=== PATIENT | male | born 1950 | race Two or more races ===

== ENCOUNTER 2021-12-18 12:03 | Emergency (ER) | payer OTHER ==
[~2021-12-18] VITALS: Ht 167.6 cm; Wt 89.8 kg
[2021-12-18] MEDS ORDERED: MONTELUKAST SOD10 MG PO (12:36)
[2021-12-18] MEDS ORDERED: IRBESARTAN300 MG PO (12:36)
[2021-12-18] MEDS ORDERED: AMLODIPINE BESYL5 MG PO (12:37)
[2021-12-18] MEDS ORDERED: DOXAZOSIN MESYLA1 MG PO (12:37)
== END 2021-12-18 20:05 | disposition home or self-care (01) ==
LOC: ER 12:03
DX: L03.113 Cellulitis of right upper limb (principal)

== ENCOUNTER 2022-04-09 05:16 | Day surgery (SDC) | payer OTHER ==
[~2022-04-09] VITALS: Ht 167.6 cm; Wt 90.7 kg
[~2022-04-09 05:16] MED LIST: AMLODIPINE BESYL5 MG PO; DOXAZOSIN MESYLA1 MG PO; IRBESARTAN300 MG PO; MONTELUKAST SOD10 MG PO
== END 2022-04-09 16:00 | disposition home or self-care (01) ==
LOC: CIR.AMB 05:16
PROVIDERS: ATTEND Orthopaedic Surgery Hand Surgery
DX: L02.413 Cutaneous abscess of right upper limb (principal); Z20.822 Contact with and (suspected) exposure to COVID-19; I10 Essential (primary) hypertension; Z71.6 Tobacco abuse counseling; F17.210 Nicotine dependence, cigarettes, uncomplicated